=== PATIENT | male | born 1995 | race Caucasian/White ===

== ENCOUNTER 2017-07-31 20:44 | Emergency (ER) | payer OTHER ==
--- NOTE | 2017-07-31 21:30 | ED Physician Documentation ---
PD HPI MALE - Stated complaint Stated Complaint: MALE - Chief complaint Chief Complaint: Abd Pain - History obtained from History obtained from: Patient - History of Present Illness Timing - onset: Other (This is a 22-year-old gentleman who presents with acute testicular pain starting at 630 after doing heavy work out with his legs just prior to that. The pain is of the right testicle and radiates up towards the inguinal ligament and is not associated with fevers, chills, urinary complaints, or nausea.) Review of Systems Constitutional: denies: Fever, Chills Cardiac: denies: Chest pain / pressure, Palpitations Respiratory: denies: Dyspnea, Cough GI: denies: Abdominal Pain, Nausea, Vomiting PD PAST MEDICAL HISTORY - Present Medications Home Medications: Ambulatory Orders Medication Instructions Recorded Confirmed No Known Home Medications [No 07/31/17 07/31/17 Known Home Medications] - Allergies Allergies/Adverse Reactions: Allergies Allergy/AdvReac Type Severity Reaction Status Date / Time Penicillins Allergy Hives Verified 07/31/17 20:50 PD ED PE NORMAL - Vitals Vital signs reviewed: Yes - General General: Alert and oriented X 3, No acute distress - Abdomen Abdomen: Soft, Non tender - Male Male : Other (Testicles appear normal grossly with normal lie and normal cremaster reflexes bilaterally. The right testicle is mildly tender especially on the superior portion. There are no skin changes, no inguinal hernia.) - Neuro Neuro: Alert and oriented X 3, Normal speech - Psych Psych: Normal mood, Normal affect Results - Vitals Vitals: Vital Signs - 24 hr 07/31/17 20:48 Temperature 36.1 C L Heart Rate 72 Respiratory 18 Rate O2 Saturation 99 Oxygen O2 Source Room air - Labs Labs: Laboratory Tests 07/31/17 21:25 Urine Color YELLOW Urine Clarity CLEAR Urine pH 6.0 Ur Specific [place] 1.010 Urine Protein NEGATIVE Urine Glucose (UA) NEGATIVE Urine Ketones NEGATIVE Urine Occult Blood TRACE-LYSE Urine Nitrite NEGATIVE Urine Bilirubin NEGATIVE Urine Urobilinogen 0.2 (NORMAL) Ur Leukocyte Esterase NEGATIVE Ur Microscopic Review NOT INDICATED PD MEDICAL DECISION MAKING - ED course ED course: 22-year-old gentleman with acute testicular pain. Of course testicular torsion is at the high end of the differential diagnosis, however he appears comfortable , has a normal lie, normal cremaster reflexes, and negative ultrasound. There is no evidence of other pathology either. I discussed with him that torsion was unlikely at this juncture but he should return immediately if worse or if symptoms are not gone in the next 12 hours or so. Departure - Departure Disposition: 01 Home, Self Care Clinical Impression: Acute pain in scrotum Condition: Good Record reviewed to determine appropriate education?: Yes Comments: Return immediately if worse or if pain is uncontrolled or if new symptoms develop. 12 hours if not better. He did receive prescription narcotics here tonight, hydrocodone. Forms: Activity restrictions
[2017-07-31 21:37] LABS: BILIRUBIN,URINE NEGATIVE (NEGATIVE)
[2017-07-31 21:40] LABS: UA CHARGE (STRIP ONLY) YES
[2017-07-31] MEDS: HYDROcod/ACETAM 5/325 MG TABLET PO STA (21:40)
[2017-07-31] MEDS ORDERED: HYDROcod/ACETAM 5/325 MG TABLET ONE (21:44)
--- NOTE | 2017-07-31 22:29 | Ultrasound Preliminary Report ---
Exam: US TESTICLE W/DOPPLER IMPRESSION: 6 mm left epididymal head cyst. Otherwise normal scrotal ultrasound exam. [facility] SITE ID: [id number]
--- NOTE | 2017-07-31 22:32 | Ultrasound Report ---
EXAM: SCROTAL ULTRASOUND EXAM DATE: 07/31/2017 10:16 PM. CLINICAL HISTORY: R testicle pain. COMPARISON: None. TECHNIQUE: Real-time scanning was performed with static images obtained. Both color-flow and Doppler spectral analysis were utilized. FINDINGS: Right: Testis: 4.5 x 2.4 x 2.7 cm. Normal size and echotexture. No mass, calcification, or abnormal blood fl ow. Epididymis: 1.2 x 1.1 x 1.0 cm. Normal size and echotexture. No mass or abnormal blood flow. Hydrocele: None. Varicocele: None. Left: Testis: 4.5 x 2.5 x 3.1 cm. Normal size and echotexture. No mass, calcification, or abnormal blood fl ow. Epididymis: 1.0 x 0.8 x 1.3 cm. normal echotexture. There is a 6 mm epididymal head cyst. Normal bloo d flow. Hydrocele: None. Varicocele: None. IMPRESSION: 6 mm left epididymal head cyst. Otherwise normal scrotal ultrasound exam. [facility] Referring Provider Line: [phone] SITE ID: [id number]
[2017-07-31] MEDS: HYDROcod/ACET 5/325 Prepack 6 PO STA (22:54)
[2017-07-31] MEDS ORDERED: HYDROcod/ACET 5/325 Prepack 6 PO ONE (22:55)
[2017-07-31 22:58] VITALS: BP 112/70
== END 2017-07-31 22:58 | disposition home or self-care (01) ==
LOC: ED 20:44
DX: N50.82 Scrotal pain (principal)
CPT/HCPCS: 76870; 81003; 93975; 99283; A9270; 81001